=== PATIENT | female | born 2000 | race Two or more races ===

== ENCOUNTER 2025-06-18 18:36 | Emergency (ER) | payer MEDICAID, OTHER ==
[~2025-06-18] VITALS: Ht 157.5 cm; Wt 102.0 kg
--- NOTE | 2025-06-18 18:47 | ECG ---
[facility] Test Date: 2025-06-18 Test Time: 18:42:29 Pat Name: SYLVIA BERTRAND Department: Room: Gender: F Cath Lab Radiology Technician: BEA : 2000 Requested By: EMELY HYMAN Order Number: [id number] Reading MD: Measurements Intervals [place] Rate: 97 P: 26 ME: 119 QRS: 37 QRSD: 88 T: 21 QT: 363 QTc: 461 Interpretive Statements Sinus rhythm Borderline short ME interval Baseline wander in lead(s) II,III,aVF Please click the below link to view image of tracing.
--- NOTE | 2025-06-18 19:18 | ED.PDOC ---
HPI Comments This patient is a severely morbidly obese 25 year-old female, with a Hx of Anxiety, who presents to the ED with a chief complaint of substernal chest pain as of 1330 today, worsening within the past X30 minutes. Patient states the chest pain is intermittent, associated with a "pressure" like sensation, and radiating to L shoulder. Patient additionally states she had a mild anxiety attack x1 hour ago. Patient reports taking Control medication regularly. Patients vitals are stable, with A hr OF 97 via EKG. There are no further concerns or modifying factors at this time. Patient otherwise denies weakness, fatigue, cough, fever, or N/V/D. Chief Complaint: Chest Pain Time Seen by MD: 18:50 Reviewed Notes: Nurses Notes, Medications, Allergies Information Source: Patient Mode of Arrival: Ambulatory Severity: Moderate Timing: Hours Duration: Since onset Prehospital treatment: None Location: Substernal Radiation: Shoulder (L) Quality: Pressure Onset: At Rest, With Light Exertion Cardiac Risk Factors: None PE Risk Factors: None History of: Other (Anxiety) Associated Signs and Symptoms: Other (chest pain ) Past Medical History PAST MEDICAL HISTORY: Anxiety Surgical History: Denies all surgeries PBX MANAGER History: No Pertinent PBX MANAGER History Family History Family History: Reviewed,noncontributory to illness, No family hx of Cancer, No family hx of DM, No family hx of Heart mae, No family hx of HTN, No family hx ofKidney mae, No family hx of Liver mae, No family hx of Lung mae, No family hx of Stroke Social History Smoker: Non-Smoker Alcohol: Denies ETOH Use Drugs: Denies Drug Use Lives In: Home Constitutional: denies: chills, diaphoresis, fatigue, fever, malaise, sweats, weakness, others EENTM: denies: blurred vision, double vision, ear bleeding, ear discharge, ear drainage, ear pain, ear ringing, eye pain, eye redness, hearing loss, mouth pain, mouth swelling, nasal discharge, nose bleeding, nose congestion, nose pain, photophobia, tearing, throat pain, throat swelling, voice changes, others Respiratory: denies: cough, hemoptysis, orthopnea, SOB at rest, shortness of breath, SOB with excertion, stridor, wheezing, others Cardiovascular: reports: chest pain; denies: dizzy spells, diaphoresis, Dyspnea on exertion, edema, irregular heart beat, left arm pain, lightheadedness, palpitations, PND, syncope, others Gastrointestinal: denies: abdomen distended, abdominal pain, blood streaked bowels, constipated, diarrhea, dysphagia, difficulty swallowing, hematemesis, melena, nausea, poor appetite, poor fluid intake, rectal bleeding, rectal pain, vomiting, others Genitourinary: denies: abnormal vagina bleeding, burning, dyspareunia, dysuria, flank pain, frequency, hematuria, incontinence, pain, , vagina discharge, urgency, others Neurological: denies: dizziness, fainting, headache, left sided numbness, left sided weakness, numbness, paresthesia, pre-existing deficit, right sided numbness, right sided weakness, seizure, speech problems, tingling, tremors, weakness, others Musculoskeletal: denies: back pain, gout, joint pain, joint swelling, muscle pain, muscle stiffness, neck pain, others Integumetry: denies: bruises, change in color, change in hair/nails, dryness, laceration, lesions, lumps, rash, wounds, others Allergic/Immunocompromised: denies: Difficulty Healing, Frequent Infections, Hives, Itching, others Hematologic/Lymphatic: denies: anemia, blood clots, easy bleeding, easy bruising, swollen glands, others Endocrine: denies: excessive hunger, excessive sweating, excessive thirst, excessive urination, flushing, intolerance to cold, intolerance to heat, unexplained weight gain, unexplained weight loss, others Psychiatric: denies: anxiety, bipolar disorder, depression, hopeless, panic disorder, schizophrenia, sleepless, suicidal, others All Other Systems: Reviewed and Negative Physical Exam General Appearance: Moderate Distress (Patient is a [id number] distress due to chest pain and anxiety concerns.), Obese HEENT: Normal ENT Inspection, Pharynx Normal, TMs Normal Neck: Full Range of Motion, Non-Tender, Normal, Normal Inspection Respiratory: Chest Non-Tender, Lungs Clear, No Accessory Muscle Use, No Respiratory Distress, Normal Breath Sounds, Other (Unremarkable auscultation bilateral lung san.) Cardiovascular: No Edema, No JVD, No Murmur, No Gallop, Normal Peripheral Pulses, Regular Rate/Rhythm, Other (Unremarkable cardiac evaluation) Breast Exam: Deferred Gastrointestinal: No Organomegaly, Non Tender, No Pulsatile Mass, Normal Bowel Sounds, Soft Genitalia: Deferred Pelvic: Deferred Rectal: Deferred Extremities: No calf tenderness, Normal capillary refill, Normal inspection, Normal range of motion, Non-tender, No pedal edema Neurologic: Alert Cerebellar Function: NOT DONE Reflexes: NOT DONE Skin: Dry, Normal Color, Warm Lymphatic: No Adenopathy EKG EKG : Pulse Rate (adult): 97 [place]: Normal Cardiac Rhythm: NSR Block: None Hypertrophy: None ST: Normal Comments Borderline short VT interval Was a procedure done? Was a procedure done?: No CP Differential Dx Differential Diagnosis: Anxiety / Panic Attack, AV Block 1st Degree, Hyperventilation, VA Differential Diagnosis: Angina, Chest Wall Pain X-Ray, Labs, Meds, VS Vital Signs Date Time Temp Pulse Resp B/P (MAP) Pulse Ox O2 Delivery O2 Flow Rate FiO2 06/18/25 19:18 97 06/18/25 18:49 98.2 111 20 154/81 97 98.2 06/18/25 18:42 97 Lab Test 06/18/25 20:24 06/18/25 19:21 Range/Units Troponin I High Sensitivity < 3 L < 3 L </=34 ng/L White Blood Count 9.3 4.4-10.8 10^3/uL Red Blood Count 4.39 4.0-5.20 10^6/uL Hemoglobin 13.0 12.2-16.2 g/dL Hematocrit 37.5 36.0-46.0 % Mean Corpuscular Volume 85.4 80.0-100.0 fL Mean Corpuscular Hemoglobin 29.6 28.0-32.0 pg Mean Corpuscular Hemoglobin Concent 34.6 32.0-36.0 g/dL Red Cell Distribution Width 13.7 11.8-14.3 % Platelet Count 315 140-450 10^3/uL Mean Platelet Volume 8.4 6.9-10.8 fL Neutrophils (%) (Auto) 64.3 37.0-80.0 % Lymphocytes (%) (Auto) 24.6 10.0-50.0 % Monocytes (%) (Auto) 6.7 0.0-12.0 % Eosinophils (%) (Auto) 3.7 0.0-7.0 % Basophils (%) (Auto) 0.7 0.0-2.0 % Neutrophils # (Auto) 6.0 1.6-8.6 10 ^3/uL Lymphocytes # (Auto) 2.3 0.4-5.4 10 ^3/uL Monocytes # (Auto) 0.6 0-1.3 10 ^3/uL Eosinophils # (Auto) 0.3 0-0.8 10 ^3/uL Basophils # (Auto) 0.1 0-0.2 10 ^3/uL Nucleated Red Blood Cells 0.0 % Sodium Level 141 136-145 mmol/L Potassium Level 3.6 3.5-5.1 mmol/L Chloride Level 106 98-107 mmol/L Carbon Dioxide Level 24 20-31 mmol/L Anion Gap 11 5-15 Blood Urea Nitrogen 10 9-23 mg/dL Creatinine 0.81 0.550-1.02 mg/dL Glomerular Filtration Rate Calc 103 >90 mL/min BUN/Creatinine Ratio 12.3 10.0-20.0 Serum Glucose 124 H 74-106 mg/dL Lactic Acid Level 1.4 0.4-2.0 mmol/L Calcium Level 9.3 8.7-10.4 mg/dL Current Medications Medications (Trade) Dose Ordered Sig/[place] Route Start Time Stop Time Status Last Admin Alprazolam (Xanax Tablet) 0.5 mg ONCE ONCE PO 06/18/25 19:15 06/18/25 19:16 DC 06/18/25 19:36 [place] [id number] Ph: [phone] DIAGNOSTIC IMAGING Diagnostic Imaging Report : [id number] Signed PATIENT: SYLVIA BERTRAND ACCT: [id number] UNIT: [id number] : 2000 LOC: ER ROOM / BED: / AGE / SEX: 25 / F ADM STATUS: REG ER SERVICE 09 ORDERING PHYSICIAN: ULICES CLARK PAC PROCEDURE(s): CXRP - CHEST PORTABLE REASON: Chest pain ORDER NUMBER(s): [id number], ACCESSION NUMBER(s): [id number] EXAM: XY CHEST PORTABLE HISTORY: Chest pain TECHNIQUE: 1 view of the chest COMPARISON: None FINDINGS/IMPRESSION: LUNGS: No pleural effusion, consolidation, or pneumothorax. Peribronchial thickening, which is nonspecific however may represent infectious versus inflammatory bronchitis. MEDIASTINUM: Unremarkable BONES: No acute osseous abnormality OTHER: None X-Ray, Labs, Meds, VS Comment All studies performed the ED were evaluated by me personally. Serum laboratories were unremarkable for any systemic concerns including unremarkable cardiac markers. EKG revealed a sinus rhythm with a rate of 97. Borderline short VT interval noted with baseline wander in leads two three and AVF. VT interval 119 and QT interval of 363. Chest x-ray revealed peribronchial thickening which was nonspecific but may represent an infectious bronchitis. Patient will be sent home with antibiotics to address the possible infectious bronchitis as well as medication for anxiety. Patient has been advised to fo llow up with the primary care provider for discussions related to her anxiety concerns and possible mental health referral. Images Reviewed?: Images reviewed and evaluated by me Time of 1ST Reevaluation: 23:13 Reevaluation 1ST: Improved Consultation: PCP, Psychiatry Patient Education/Counseling: Diagnosis, Treatment Family Education/Counseling: Diagnosis, Treatment, No Family Present SEPSIS Sepsis Screen Date sepsis recognized/suspect: Jun 18, 2025 Time Sepsis recognized/suspect: 1851 Recent Procedure: No On Antibiotic Therapy: No Respiratory Rate >20: No Heart Rate >90: No Temp<36 C (96.8 F) or >38.3 C: No SBP <90 or MAP <65 mmHG: No New Acute Mental Status Change: No Is the patient on CPAP, BIPAP,: No Physician Orders Electrocardigram (06/18/25 19:46) Electrocardigram (06/18/25 21:46) Urinalysis (06/18/25 19:10) Chest Portable (06/18/25 19:10) Vital Signs Date Time Temp Pulse Resp B/P (MAP) Pulse Ox O2 Delivery O2 Flow Rate FiO2 06/18/25 19:18 97 06/18/25 18:49 98.2 111 20 154/81 97 98.2 06/18/25 18:42 97 Laboratory Tests Test 06/18/25 19:21 Lactic Acid Level 1.4 mmol/L (0.4-2.0) White Blood Count 9.3 10^3/uL (4.4-10.8) Medications Medications Dose Ordered Sig/[place] Route Start Time Stop Time Status Last Admin Dose Admin Alprazolam 0.5 mg ONCE ONCE PO 06/18/25 19:15 06/18/25 19:16 DC 06/18/25 19:36 Departure 1 Departure Time of Disposition: 23:14 Impression: Primary Impression: Pneumonia Additional Impression: Anxiety Disposition: HOME / SELF CARE / HOMELESS Condition: Stable Additional Instructions: Advised patient utilize antibiotics as directed until completion as well as anxiety medication as needed. Patient should follow up with her primary care provider for discussions related to today's visit as well as conversations related to possible anxiety management and possible mental health referral. e-Prescriptions Alprazolam (Xanax) 0.5 Mg Tb 1 TAB PO TIDP PRN, #10 TAB Prov: ULICES CLARK PAC 06/18/25 Azithromycin (Azithromycin) 500 Mg Tab 1 TAB PO DAILY for 4 Days, #4 TAB Prov: ULICES CLARK PAC 06/18/25 Discharged With: Self, Friend Critical Care Note Critical Care Time?: No Stability Stability form required: No Heart Score Heart Score: Heart Score Response (Comments) Value History Slightly Suspicious 0 EKG Normal 0 Age <45 0 Risk Factors No known risk factors 0 Troponin Normal limit 0 Total 0 I personally scribed for ULICES CLARK PAC ([email or web address]) on 06/18/25 at 19:18. Electronically submitted by Janette Nguyen ([email or web address]). I personally scribed for ULICES CLARK PAC ([email or web address]) on 06/18/25 at 19:46. Electronically submitted by Janette Nguyen ([email or web address]). I personally scribed for ULICES CLARK PAC ([email or web address]) on 06/18/25 at 21:09. Electronically submitted by Janette Nguyen ([email or web address]). ULICES CLARK PAC Jun 18, 2025 19:18
[2025-06-18 19:31] LABS: Hematocrit 37.5 % (36.0-46.0); Hemoglobin 13.0 g/dL (12.2-16.2); Mean Corpuscular Hemoglobin 29.6 pg (28.0-32.0); Mean Corpuscular Volume 85.4 fL (80.0-100.0); Nucleated Red Blood Cells % 0.0 %
[2025-06-18] MEDS: ALPRAZolam 0.5 MG TAB PO ONE (19:36)
--- NOTE | 2025-06-18 19:39 | DVH ---
EXAM: XY CHEST PORTABLE HISTORY: Chest pain TECHNIQUE: 1 view of the chest COMPARISON: None FINDINGS/IMPRESSION: LUNGS: No pleural effusion, consolidation, or pneumothorax. Peribronchial thickening, which is nonspe cific however may represent infectious versus inflammatory bronchitis. MEDIASTINUM: Unremarkable BONES: No acute osseous abnormality OTHER: None
[2025-06-18 19:40] LABS: Chloride 106 mmol/L (98-107); Potassium 3.6 mmol/L (3.5-5.1); Sodium 141 mmol/L (136-145)
[2025-06-18 19:41] LABS: Anion Gap 11 (5-15); Carbon Dioxide 24 mmol/L (20-31)
[2025-06-18 19:42] LABS: Calcium 9.3 mg/dL (8.7-10.4)
[2025-06-18 19:47] LABS: BUN/Creatinine Ratio 12.3 (10.0-20.0); Blood Urea Nitrogen 10 mg/dL (9-23)
[2025-06-18 19:51] LABS: Glucose 124 mg/dL (74-106)
[2025-06-18] MEDS ORDERED: AZIT500T66 PO (23:15)
[2025-06-18] MEDS ORDERED: ALPR0.5T PO (23:15)
[2025-06-18 23:28] VITALS: BP 147/89; PULSE 99; TEMP 98.9
[2025-06-18 23:29] VITALS: RESP 16; O2SAT 99
[2025-06-18] MEDS: AZITHROMYCIN 250 MG TAB PO ONE (23:37)
[2025-06-18 23:41] LABS: Urine Protein, UAD TRACE (Negative)
== END 2025-06-18 23:38 | disposition home or self-care (01) ==
LOC: ER 18:40
DX: J18.9 Pneumonia, unspecified organism (principal); F41.9 Anxiety disorder, unspecified; Z79.899 Other long term (current) drug therapy
CPT/HCPCS: 36415; 71045; 80048; 81001; 83605; 84484; 85025; 93005